=== PATIENT | male | born 1970 | race Two or more races ===

== ENCOUNTER 2018-02-27 04:47 | Emergency (ER) | payer OTHER ==
[~2018-02-27] VITALS: Ht 182.9 cm; Wt 80.3 kg
--- NOTE | 2018-02-27 04:47 | NUR ---
TO BED 10 BIB PARAMEDICS C/O R SIDED CP WHILE SITTING DOWN WATCHING TV NON RADIATING X30MIN/ SKIN WARM NONDIAPHORETIC. PLACE PT ON CARDIAC MONITORING, CONTINUOUS POX. ER MD AT BEDSIDE TO EVAL PT.
[2018-02-27] MEDS ORDERED: NITROGLYCERIN PACKET 1 GM PACKET ONE (05:23)
[2018-02-27] MEDS ORDERED: LORAZEPAM INJ 2 MG/ML VIAL ONE (05:24)
[2018-02-27] MEDS ORDERED: ASPIRIN 81 MG TAB.CHEW ONE (05:24)
[2018-02-27 05:27] LABS: HEMATOCRIT 39 % (39-51); HEMOGLOBIN 13.4 g/dL (13.5-17.5); LYMPHOCYTES # (AUTO) 1.3 /CMM (0.8-4.8); LYMPHOCYTES % (AUTO) 30.4 % (20.0-44.0); MEAN CORPUSCULAR HEMOGLOBIN 32 PG (26.0-33.0); MEAN CORPUSCULAR HGB CONC 35 g/dl (31.0-36.0); MEAN CORPUSCULAR VOLUME 91 fL (80-96); MONOCYTES # (AUTO) 0.5 /CMM (0.1-1.30); MONOCYTES % (AUTO) 11.1 % (2.0-12.0); NEUTROPHILS # (AUTO) 2.2 /CMM (1.8-8.9); NEUTROPHILS % (AUTO) 53.5 % (43.0-81.0); PLATELET COUNT (AUTO) 173 /CMM (150-450); RDW COEFFICIENT OF VARIATION 13.7 (11.5-15.0); RED BLOOD CELL COUNT(AUTO) 4.26 MIL/uL (4.5-6.0); WHITE BLOOD COUNT (AUTO) 4.2 K/uL (4.3-11.0)
[2018-02-27] MEDS ORDERED: NITROGLYCERIN PACKET 1 GM PACKET TD ONE (05:30)
[2018-02-27] MEDS ORDERED: ASPIRIN 81 MG TAB.CHEW PO ONE (05:30)
[2018-02-27] MEDS ORDERED: LORAZEPAM INJ 2 MG/ML VIAL IV ONE (05:30)
[2018-02-27] MEDS ORDERED: IV NS 0.9% 1,000 ML BAG IV ONE (05:30)
--- NOTE | 2018-02-27 05:32 | NUR ---
PT MEDICATED ORDERED.
[2018-02-27 05:44] LABS: CALCIUM, SERUM 8.5 mg/dL (8.5-10.1); CARBON DIOXIDE 30 mmol/L (21-32); CHLORIDE 102 mmol/L (98-107); GLUCOSE 146 mg/dL (74-106); POTASSIUM 3.5 mmol/L (3.5-5.1); SODIUM SERUM 137 mmol/L (136-145); UREA NITROGEN, BLOOD 18 mg/dL (7-18)
[2018-02-27 05:47] LABS: TROPONIN I < 0.017 ng/mL (0.00-0.056)
[2018-02-27 05:54] LABS: ALANINE AMINOTRANSFERASE 46 U/L (12-78); ALBUMIN 3.3 g/dL (3.4-5.0); ALKALINE PHOSPHATASE 81 U/L (46-116); B-TYPE NATRIURETIC PEPTIDE 28 PG/ML (0-125); BILIRUBIN,DIRECT 0.1 mg/dL (0.0-0.2); BILIRUBIN,TOTAL 0.5 mg/dL (0.2-1.0); TOTAL PROTEIN, SERUM 8.3 g/dL (6.4-8.2)
[2018-02-27] MEDS ORDERED: NITROGLYCERIN 0.4 MG/TAB BOTTLE ONE (05:54)
[2018-02-27] MEDS ORDERED: NITROGLYCERIN 0.4 MG/TAB BOTTLE SL ONE (06:00)
[2018-02-27 06:05] LABS: ASPARTATE AMINOTRANSFERASE 34 U/L (15-37)
--- NOTE | 2018-02-27 06:24 | NUR ---
nitro paste to chest wall removed and wiped off.
--- NOTE | 2018-02-27 06:25 | NUR ---
ns 1000ml's infused.
--- NOTE | 2018-02-27 06:26 | NUR ---
IV removed. Catheter intact and site benign. Pressure and 4x4 applied to site. No bleeding noted. Patient discharged to home in stable condition. Written and verbal after care instructions given. Patient verbalizes understanding of instruction. ambulatory with a steady gait noted. pt aaox4 no acute distress noted, resp even and unlabored. advice pt not to drive or operate any machinery due to pt was given ativan. pt verbalize understanding. pt friend at bedside to take pt home.
[2018-02-27 06:28] VITALS: BP 117/89
== END 2018-02-27 06:30 | disposition home or self-care (01) ==
LOC: ER 04:49
DX: R07.89 Other chest pain (principal); I10 Essential (primary) hypertension; R00.0 Tachycardia, unspecified; F15.10 Other stimulant abuse, uncomplicated; F41.9 Anxiety disorder, unspecified; Z88.2 Allergy status to sulfonamides; Z88.8 Allergy status to other drugs, medicaments and biological substances
CPT/HCPCS: 36415; 71045; 80048; 80076; 83880; 84484; 85025; 85378; 93005 ×2; 96374; 99285; A4606; J2060; J7030; Z7610

== ENCOUNTER 2018-03-22 13:08 | Emergency (ER) | payer OTHER ==
[~2018-03-22] VITALS: Ht 170.2 cm; Wt 74.8 kg
--- NOTE | 2018-03-22 14:17 | NUR ---
KRISTAL AGRICULTURAL EDUCATION TEACHER AT BEDSIDE FOR EVAL.
[2018-03-22] MEDS ORDERED: IV NS 0.9% 1,000 ML BAG IV ONE (14:30)
[2018-03-22] MEDS ORDERED: ACETAMINOPHEN ES 500 MG TABLET PO ONE (14:30)
[2018-03-22] MEDS ORDERED: MORPHINE SULFATE INJ 2 MG/ML DISP.SYRIN IV ONE (14:30)
[2018-03-22] MEDS ORDERED: ONDANSETRON HCL/PF 4 MG/2 ML VIAL IVP ONE (14:30)
--- NOTE | 2018-03-22 14:30 | NUR ---
IV LINE STARTED BLOOD DRAWN AND SENT TO LAB.
[2018-03-22 14:40] LABS: EOSINOPHILS % (AUTO) 2.6 % (0.0-6.0); LYMPHOCYTES # (AUTO) 1.2 /CMM (0.8-4.8)
[2018-03-22] MEDS ORDERED: ONDANSETRON HCL/PF 4 MG/2 ML VIAL ONE (14:41)
[2018-03-22] MEDS ORDERED: MORPHINE SULFATE INJ 4 MG/ML DISP.SYRIN ONE (14:41)
[2018-03-22] MEDS ORDERED: ACETAMINOPHEN ES 500 MG TABLET ONE (14:41)
[2018-03-22 14:42] LABS: BASOPHILS # (AUTO) 0.1 /CMM (0.0-0.2); BASOPHILS % (AUTO) 0.9 % (0.0-2.0); HEMATOCRIT 43 % (39-51); HEMOGLOBIN 14.4 g/dL (13.5-17.5); LYMPHOCYTES % (AUTO) 19.7 % (20.0-44.0); MEAN CORPUSCULAR HGB CONC 34 g/dl (31.0-36.0); MEAN CORPUSCULAR VOLUME 90 fL (80-96); MONOCYTES # (AUTO) 0.5 /CMM (0.1-1.30); MONOCYTES % (AUTO) 9.2 % (2.0-12.0); NEUTROPHILS % (AUTO) 67.6 % (43.0-81.0); PLATELET COUNT (AUTO) 158 /CMM (150-450); RDW COEFFICIENT OF VARIATION 12.7 (11.5-15.0); RED BLOOD CELL COUNT(AUTO) 4.73 MIL/uL (4.5-6.0)
[2018-03-22 14:51] LABS: INR 0.85 (0.85-1.15)
[2018-03-22 14:56] LABS: TROPONIN I < 0.017 ng/mL (0.00-0.056)
[2018-03-22 14:59] LABS: ALANINE AMINOTRANSFERASE 83 U/L (12-78); ALBUMIN 3.5 g/dL (3.4-5.0); ALKALINE PHOSPHATASE 109 U/L (46-116); ASPARTATE AMINOTRANSFERASE 53 U/L (15-37); BILIRUBIN,DIRECT 0.1 mg/dL (0.0-0.2); BILIRUBIN,TOTAL 0.5 mg/dL (0.2-1.0); CALCIUM, SERUM 9.2 mg/dL (8.5-10.1); CARBON DIOXIDE 28 mmol/L (21-32); CHLORIDE 104 mmol/L (98-107); CREATININE 1.2 mg/dL (0.6-1.3); GLUCOSE 116 mg/dL (74-106); POTASSIUM 5.3 mmol/L (3.5-5.1); SODIUM SERUM 137 mmol/L (136-145); TOTAL PROTEIN, SERUM 8.6 g/dL (6.4-8.2); UREA NITROGEN, BLOOD 16 mg/dL (7-18)
[2018-03-22] MEDS ORDERED: TDAP [DIPH/PERTUSSIS/TET] 0.5 ML VIAL IM ONE ×2 (15:30→15:54)
[2018-03-22] MEDS ORDERED: LIDOCAINE 1% INJ 50 ML MDV IJ ONE (15:30)
[2018-03-22 16:06] VITALS: BP 130/75
--- NOTE | 2018-03-22 16:06 | NUR ---
Patient discharged to home in stable condition. Written and verbal after care instructions given. Patient verbalizes understanding of instruction.IV removed. Catheter intact and site benign. Pressure and 4x4 applied to site. No bleeding noted.
== END 2018-03-22 16:07 | disposition home or self-care (01) ==
LOC: ER 13:11
DX: L03.319 Cellulitis of trunk, unspecified (principal); L02.219 Cutaneous abscess of trunk, unspecified; L73.8 Other specified follicular disorders; I10 Essential (primary) hypertension; F41.9 Anxiety disorder, unspecified; Z88.2 Allergy status to sulfonamides; Z88.8 Allergy status to other drugs, medicaments and biological substances
CPT/HCPCS: 10060; 36415; 71045; 80048; 80076; 83605; 84484; 85025; 85730; 87040 ×2; 87804 ×2; 90471; 90715; 93005; 96374; 96375; 99285; A4606; A6402; J2270; J2405; J7030; Z7610; 87400

== ENCOUNTER 2018-03-23 18:57 | Emergency (ER) | payer OTHER ==
[~2018-03-23] VITALS: Ht 185.4 cm; Wt 81.6 kg
--- NOTE | 2018-03-23 19:11 | NUR ---
PT BIB FRIEND FROM HOME PLACED IN WHEEL CHAIR TAKEN TO ROOM 7 EKG DONE MD LUO AWARE PT ALERT WITH ORIENTATION X 3 PT NOTED TO BE ANXIOUS DEEP BREATHING
[2018-03-23] MEDS ORDERED: IV NS 0.9% 1,000 ML BAG IV ONE (19:30)
[2018-03-23] MEDS ORDERED: MORPHINE SULFATE INJ 2 MG/ML DISP.SYRIN IV ONE (19:30)
[2018-03-23] MEDS ORDERED: ONDANSETRON HCL/PF 4 MG/2 ML VIAL IVP ONE (19:30)
[2018-03-23] MEDS ORDERED: LORAZEPAM INJ 2 MG/ML VIAL IV ONE (19:30)
[2018-03-23 19:31] LABS: BASOPHILS # (AUTO) 0.1 /CMM (0.0-0.2); EOSINOPHILS % (AUTO) 1.5 % (0.0-6.0)
[2018-03-23 19:35] LABS: BASOPHILS % (AUTO) 1.1 % (0.0-2.0); HEMATOCRIT 42 % (39-51); HEMOGLOBIN 14.3 g/dL (13.5-17.5); LYMPHOCYTES # (AUTO) 0.9 /CMM (0.8-4.8); LYMPHOCYTES % (AUTO) 18.8 % (20.0-44.0); MEAN CORPUSCULAR HGB CONC 34 g/dl (31.0-36.0); MEAN CORPUSCULAR VOLUME 90 fL (80-96); MONOCYTES # (AUTO) 0.6 /CMM (0.1-1.30); MONOCYTES % (AUTO) 11.2 % (2.0-12.0); NEUTROPHILS # (AUTO) 3.2 /CMM (1.8-8.9); NEUTROPHILS % (AUTO) 67.4 % (43.0-81.0); PLATELET COUNT (AUTO) 163 /CMM (150-450); RDW COEFFICIENT OF VARIATION 12.6 (11.5-15.0); RED BLOOD CELL COUNT(AUTO) 4.66 MIL/uL (4.5-6.0); WHITE BLOOD COUNT (AUTO) 4.9 K/uL (4.3-11.0)
[2018-03-23] MEDS ORDERED: LORAZEPAM INJ 2 MG/ML VIAL ONE (19:37)
[2018-03-23] MEDS ORDERED: ONDANSETRON HCL/PF 4 MG/2 ML VIAL ONE (19:37)
[2018-03-23] MEDS ORDERED: MORPHINE SULFATE INJ 4 MG/ML DISP.SYRIN ONE (19:37)
[2018-03-23 19:43] LABS: CALCIUM, SERUM 9.4 mg/dL (8.5-10.1); CARBON DIOXIDE 29 mmol/L (21-32); CHLORIDE 102 mmol/L (98-107); CREATININE 0.9 mg/dL (0.6-1.3); GLUCOSE 105 mg/dL (74-106); POTASSIUM 4.9 mmol/L (3.5-5.1); SODIUM SERUM 137 mmol/L (136-145); UREA NITROGEN, BLOOD 15 mg/dL (7-18)
[2018-03-23 19:45] LABS: INR 0.88 (0.85-1.15)
--- NOTE | 2018-03-23 19:45 | NUR ---
PATIENT MEDICATED ORDERED
[2018-03-23 19:49] LABS: ALANINE AMINOTRANSFERASE 120 U/L (12-78); ALBUMIN 3.5 g/dL (3.4-5.0); ALKALINE PHOSPHATASE 134 U/L (46-116); ASPARTATE AMINOTRANSFERASE 74 U/L (15-37); BILIRUBIN,DIRECT 0.1 mg/dL (0.0-0.2); BILIRUBIN,TOTAL 0.5 mg/dL (0.2-1.0); TOTAL PROTEIN, SERUM 9.1 g/dL (6.4-8.2)
[2018-03-23 19:51] LABS: TROPONIN I < 0.017 ng/mL (0.00-0.056)
--- NOTE | 2018-03-23 19:57 | NUR ---
PATIENT STATES HE HAS AN ALLERGY TO IODINE, UNSURE REGARDING TYPE OF REACTION. DR LUO NOTIFIED
--- NOTE | 2018-03-23 20:04 | NUR ---
Patient does not wish to proceed with medical care recommended by Dr. Childers. Patient given information related to possible complications, up to and including , which could occur as a result of leaving the hospital at this time. Patient verbalizes understanding of risks involved due to leaving against medical advice. Patient has signed AMA form, Pt signed AMA form with letter "x" witnessed by emt ghada and champ garduno.
--- NOTE | 2018-03-23 20:05 | NUR ---
IV removed. Catheter intact and site benign. Pressure and 4x4 applied to site. No bleeding noted. Patient discharged to home in stable condition. Written and verbal after care instructions given. Patient verbalizes understanding of instruction.
--- NOTE | 2018-03-23 20:06 | NUR ---
PATIENT INSTRUCTED NOT TO DRIVE OR OPERATE HEAVY MACHINERY. PATIENT VERBALIZES UNDERSTANDING Addendum: 03/23/18 at 2020 by MARK PATIENT NOTED WITH STEADY GAIT
[2018-03-23 20:22] VITALS: BP 140/84
== END 2018-03-23 20:06 | disposition left against medical advice (07) ==
LOC: ER 19:03
DX: R07.89 Other chest pain (principal); F41.1 Generalized anxiety disorder; I10 Essential (primary) hypertension; I25.2 Old myocardial infarction; R00.0 Tachycardia, unspecified; Z88.2 Allergy status to sulfonamides; Z88.8 Allergy status to other drugs, medicaments and biological substances
CPT/HCPCS: 36415; 71045; 80048; 80076; 84484; 85025; 85730; 93005; 96374; 96375; 99285; A4606; J2060; J2270; J2405; J7030; Z7610

== ENCOUNTER 2018-08-15 17:12 | Emergency (ER) | payer OTHER ==
[~2018-08-15] VITALS: Ht 185.4 cm; Wt 83.9 kg
--- NOTE | 2018-08-15 17:14 | NUR ---
BIB SELF W C/O SEVERE MIGRAINE HEADACHE ATTACK; RUN OUT OF IMITREX, + HIV - LAST CD 4 COUNT IS OKAY PER PATIENT REPORT, TO ER BED 6, HOOKED TO MONITOR, AWAITING MD JIMENEZ
--- NOTE | 2018-08-15 17:20 | NUR ---
DR MIRELES AT BEDSIDE
[2018-08-15] MEDS ORDERED: METOCLOPRAMIDE HCL 10 MG/2 ML VIAL IV ONE (17:30)
[2018-08-15] MEDS ORDERED: IV NS 0.9% 1,000 ML IV ONE (17:30)
[2018-08-15] MEDS ORDERED: HYDROMORPHONE 1 MG/1 ML DISP.SYRIN IV ONE (17:30)
[2018-08-15] MEDS ORDERED: METOCLOPRAMIDE HCL 10 MG/2 ML VIAL ONE (17:34)
[2018-08-15] MEDS ORDERED: HYDROMORPHONE 1 MG/1 ML DISP.SYRIN ONE (17:35)
--- NOTE | 2018-08-15 19:17 | NUR ---
IV removed. Catheter intact and site benign. Pressure and 4x4 applied to site. No bleeding noted.Patient discharged to home in stable condition. Written and verbal after care instructions given. Patient verbalizes understanding of instruction.
[2018-08-15 19:18] VITALS: BP 138/94
[2018-08-16] MEDS ORDERED: HYDROMORPHONE 1 MG/1 ML DISP.SYRIN ONE ×2 (01:45→06:32)
[2018-08-16] MEDS ORDERED: METOCLOPRAMIDE HCL 10 MG/10 ML UDC ONE (01:45)
[2018-08-16] MEDS ORDERED: ONDANSETRON HCL/PF 4 MG/2 ML VIAL ONE (06:33)
[2018-08-16] MEDS ORDERED: BUPR300T54 PO (07:55)
[2018-08-16] MEDS ORDERED: ATOR10TA PO (07:55)
[2018-08-16] MEDS ORDERED: CARV6.252 PO (07:55)
[2018-08-16] MEDS ORDERED: EMTR1TAB17 PO (07:55)
[2018-08-16] MEDS ORDERED: ALPR1TAB7 PO (07:55)
[2018-08-16] MEDS ORDERED: ASPI-1152 PO (07:55)
[2018-08-16] MEDS ORDERED: DOLU50TA PO (07:55)
[2018-08-16] MEDS ORDERED: OMEP40CA37 PO (07:55)
== END 2018-08-15 19:19 | disposition home or self-care (01) ==
LOC: ER 17:18
DX: R51 Headache (principal); L02.415 Cutaneous abscess of right lower limb; I10 Essential (primary) hypertension; I25.2 Old myocardial infarction; F41.9 Anxiety disorder, unspecified; Z88.2 Allergy status to sulfonamides; Z88.8 Allergy status to other drugs, medicaments and biological substances
CPT/HCPCS: 96361; 96374; 96375; 99283; A4606; J1170; J2765; J7030; J2405; J8597

== ENCOUNTER 2018-08-16 00:56 | Inpatient (IN) | payer MEDICAID, OTHER ==
[~2018-08-16] VITALS: Ht 182.9 cm; Wt 87.5 kg
--- NOTE | 2018-08-16 01:20 | NUR ---
AMARI C/O MIGRAINE, RECENTLY DC FROM [facility] ER, PAIN GOT WORSE, +NV, +DIZZINESS AND BLURRY VISION, SEEN AND TRIAGED PLACED ON ER BED 7, AWAITING TO BE EVAL BY DR PAREKH.
--- NOTE | 2018-08-16 01:27 | NUR ---
TAKEN FOR CT HEAD.
--- NOTE | 2018-08-16 01:27 | NUR ---
SEEN BY DR IGLESIA JIMENEZ DONE, ORDERS ENTERED.
[2018-08-16] MEDS ORDERED: HYDROMORPHONE INJ 2 MG/ML DISP.SYRIN IM ONE (01:30)
[2018-08-16] MEDS ORDERED: METOCLOPRAMIDE HCL 10 MG/2 ML VIAL IV ONE (01:30)
[2018-08-16] MEDS ORDERED: IV NS 0.9% 1,000 ML BAG IV ONE ×2 (01:30→05:30)
[2018-08-16 01:51] LABS: BASOPHILS % (AUTO) 0.5 % (0.0-2.0); HEMATOCRIT 43 % (39-51); HEMOGLOBIN 14.6 g/dL (13.5-17.5); LYMPHOCYTES # (AUTO) 1.5 /CMM (0.8-4.8); LYMPHOCYTES % (AUTO) 34.1 % (20.0-44.0); MEAN CORPUSCULAR HGB CONC 35 g/dl (31.0-36.0); MEAN CORPUSCULAR VOLUME 90 fL (80-96); MONOCYTES # (AUTO) 0.4 /CMM (0.1-1.30); MONOCYTES % (AUTO) 9.5 % (2.0-12.0); NEUTROPHILS # (AUTO) 2.3 /CMM (1.8-8.9); NEUTROPHILS % (AUTO) 51.9 % (43.0-81.0); PLATELET COUNT (AUTO) 164 /CMM (150-450); RED BLOOD CELL COUNT(AUTO) 4.73 MIL/uL (4.5-6.0); WHITE BLOOD COUNT (AUTO) 4.3 K/uL (4.3-11.0)
[2018-08-16 02:01] LABS: CALCIUM, SERUM 8.9 mg/dL (8.5-10.1); POTASSIUM 4.1 mmol/L (3.5-5.1)
[2018-08-16 02:06] LABS: ALBUMIN 3.4 g/dL (3.4-5.0); BILIRUBIN,DIRECT 0.1 mg/dL (0.0-0.2); BILIRUBIN,TOTAL 0.4 mg/dL (0.2-1.0); TOTAL PROTEIN, SERUM 8.9 g/dL (6.4-8.2)
--- NOTE | 2018-08-16 03:37 | NUR ---
LP DONE WITH CSF CULTURE COLLECTED AND TAKEN LAB. 4 BOTTLES WELL LABELED. COLLECTED BY DR PAREKH.
[2018-08-16] MEDS ORDERED: LIDOCAINE 1% INJ 50 ML MDV IJ ONE (04:04)
--- NOTE | 2018-08-16 05:00 | NUR ---
PT STILL C/O SEVERE H/A, MD PAREKH MADE AWRARE, MORE DILAUDID 0.5 ML AND ZOFRAN ORDERED AND GIVEN.
[2018-08-16 05:17] LABS: CSF PROTEIN 48.4 mg/dL (15-45)
[2018-08-16] MEDS ORDERED: HYDROMORPHONE 1 MG/1 ML DISP.SYRIN IV ONE ×2 (05:30→06:30)
[2018-08-16] MEDS ORDERED: HYDROMORPHONE 1 MG/1 ML DISP.SYRIN ONE (05:32)
--- NOTE | 2018-08-16 06:24 | NUR ---
PAGED [facility].
[2018-08-16] MEDS ORDERED: ONDANSETRON HCL/PF - ER 4 MG/2 ML VIAL IV ONE (06:30)
--- NOTE | 2018-08-16 06:40 | NUR ---
PERSON FOR CONTACT: CHIP
--- NOTE | 2018-08-16 06:49 | NUR ---
BED 328-1
[2018-08-16] MEDS ORDERED: ONDANSETRON HCL/PF 4 MG/2 ML VIAL IVP PRN (07:00)
[2018-08-16] MEDS ORDERED: MAGNESIUM HYDROXIDE 30 ML UDC PO PRN (07:00)
[2018-08-16] MEDS ORDERED: ASPIRIN/ACETAMINOPHEN/CAFFEINE 1 EACH TABLET PO PRN (07:00)
[2018-08-16] MEDS ORDERED: ACETAMINOPHEN 325 MG TABLET PO PRN (07:00)
[2018-08-16] MEDS ORDERED: Z GUARD REMEDY 2 OZ OINT TP PRN (07:00)
[2018-08-16] MEDS ORDERED: ZOLPIDEM TARTRATE 5 MG TABLET PO PRN (07:00)
[2018-08-16] MEDS ORDERED: MAG HYDROX/AL HYDROX/SIMETH 30 ML UDC PO PRN (07:00)
--- NOTE | 2018-08-16 07:34 | NUR ---
REPORT FOR MADDI GIVEN TO ED RN.
[2018-08-16] MEDS ORDERED: BUPR300T54 PO (07:55)
[2018-08-16] MEDS ORDERED: ASPI-1152 PO (07:55)
[2018-08-16] MEDS ORDERED: EMTR1TAB17 PO (07:55)
[2018-08-16] MEDS ORDERED: CARV6.252 PO (07:55)
[2018-08-16] MEDS ORDERED: DOLU50TA PO (07:55)
[2018-08-16] MEDS ORDERED: OMEP40CA37 PO (07:55)
[2018-08-16] MEDS ORDERED: ALPR1TAB7 PO (07:55)
[2018-08-16] MEDS ORDERED: ATOR10TA PO (07:55)
[2018-08-16 08:00] VITALS: BP 164/108
--- NOTE | 2018-08-16 08:43 | NUR ---
REPORT GIVEN TO ALLEN TOMAS FOR MADDI MS 328-1
--- NOTE | 2018-08-16 09:00 | NUR ---
patient admitted to room 311-1 , MS. Patient arrived via wheelchair, A/Ox 4 , BP elevated 164/108, afebrile, O2 saturation 97% on room air. No distress noted, pt complains of headache. RAC #20 g intact and patent.,skin intact. Dr. Marrufo is here , will see pt soon.
[2018-08-16] MEDS ORDERED: ATORVASTATIN 10 MG TABLET PO SCH (11:30)
[2018-08-16] MEDS ORDERED: CARVEDILOL 6.25 MG TABLET PO SCH (11:30)
[2018-08-16] MEDS ORDERED: Medication Not On Formulary EA (Dolutegravir Sodium (Tivicay) 50 MG) PO SCH (11:30)
[2018-08-16] MEDS ORDERED: Medication Not On Formulary EA (Emtricitabine/Tenofov Alafenam (Descovy 200-25 mg Tablet PO SCH (11:30)
[2018-08-16] MEDS ORDERED: SUMATRIPTAN SUCCINATE 25 MG TABLET PO ONE (11:30)
--- NOTE | 2018-08-16 12:00 | NUR ---
Imitrex administered once as directed.
[2018-08-16 12:11] VITALS: BP 164/108
--- NOTE | 2018-08-16 16:10 | NUR ---
patient stated he cannot stay anymore , his filing better and needs to go home. D/C instructions offered offered but patient refused and wants to leave against medical advise. Patient alert and oriented x4, refused to take VS . IV line removed , ID line removed as well.All belongings with patient. AMA form signed by patient.
[2018-08-16] MEDS ORDERED: KETOROLAC TROMETHAMINE INJ 30 MG/ML VIAL IV ONE (16:30)
[2018-08-16] MEDS ORDERED: NAPROXEN 500 MG TABLET PO PRN (16:30)
[2018-08-16] MEDS ORDERED: NAPROXEN 250 MG TABLET PO PRN (17:00)
[2018-08-16] MEDS ORDERED: IV NS 0.9% 1,000 ML IV PRN (17:30)
[2018-08-16] MEDS ORDERED: TOPIRAMATE 25 MG TABLET PO SCH (21:00)
[2018-08-16] MEDS ORDERED: ALPRAZOLAM 1 MG TABLET PO PRN (22:00)
[2018-08-17 07:06] LABS: *BASOS 0 % (Not Estab.); *EOS 3 % (Not Estab.); *EOS, ABSOLUTE 0.1 x10E3/uL (0.0-0.4); *HCT 44.7 % (37.5-51.0); *HGB 15.2 g/dL (13.0-17.7); *IMMATURE GRANULOCYTES 0 % (Not Estab.); *LYMPHOCYTES 46 % (Not Estab.); *LYMPHS, ABSOLUTE 2.1 x10E3/uL (0.7-3.1); *MCH 30.7 pg (26.6-33.0); *MCV 90 fL (79-97); *MONOCYTES 10 % (Not Estab.); *MONOS, ABSOLUTE 0.4 x10E3/uL (0.1-0.9); *NEUTROPHILS 41 % (Not Estab.); *NEUTROPHILS, ABSOLUTE 1.9 x10E3/uL (1.4-7.0); *PLT 195 x10E3/uL (150-379); *RBC 4.95 x10E6/uL (4.14-5.80); *RDW 13.6 % (12.3-15.4)
[2018-08-17] MEDS ORDERED: PANTOPRAZOLE 40 MG TABLET.DR PO SCH (07:30)
[2018-08-17] MEDS ORDERED: BUPROPION XL 150 MG TAB.ER.24 PO SCH (09:00)
[2018-08-17] MEDS ORDERED: ASPIRIN EC 81 MG TABLET.DR PO SCH (09:00)
[2018-08-17 10:16] LABS: *% CD 4 POS. LYMPH 13.7 % (30.8-58.5); *% CD 8 POS. LYMPH 59.4 % (12.0-35.5); *ABSOLUTE CD 4 HELPER 288 /uL (359-1519); *ABSOLUTE CD 8 SUPPRESSOR 1247 /uL (109-897); *CD4/CD8 RATIO 0.23 (0.92-3.72)
[2018-08-19 12:17] LABS: VDRL, CSF Non Reactive (Non Rea:<1:1)
[2018-08-19 22:11] LABS: *HIV-1 RNA BY PCR 20 copies/mL (.); *HIV-1 log10 RNA 1.301 (.)
[2018-08-20 08:13] LABS: *CRYPTOCOCCUS AG, CSF Negative (Negative)
== END 2018-08-16 16:10 | disposition left against medical advice (07) | DRG 54 ==
LOC: ER 00:58 → MED 07:09
PROVIDERS: ADMIT Internal Medicine; ATTEND Internal Medicine
DX: G43.919 Migraine, unspecified, intractable, without status migrainosus (principal); K76.0 Fatty (change of) liver, not elsewhere classified; F41.9 Anxiety disorder, unspecified; G97.1 Other reaction to spinal and lumbar puncture; I10 Essential (primary) hypertension; K21.9 Gastro-esophageal reflux disease without esophagitis; Z88.2 Allergy status to sulfonamides; R74.0 Nonspecific elevation of levels of transaminase and lactic acid dehydrogenase [LDH]; Y84.4 Aspiration of fluid as the cause of abnormal reaction of the patient, or of later complication, without mention of misadventure at the time of the procedure; Y92.89 Other specified places as the place of occurrence of the external cause
CPT/HCPCS: 36415; 70450-TC; 80048-TC; 80076-TC; 82945-TC; 84155-TC; 85025-TC; 85730-TC; 86360; 86592; 87070-TC; 87081-TC; 87102-TC; 87536; 87899; 89051-TC; A6403; G0378; J1170; J2405; J3490; J7030

== ENCOUNTER 2019-03-08 03:50 | Emergency (ER) | payer MEDICAID ==
[~2019-03-08] VITALS: Ht 185.4 cm; Wt 88.5 kg
[~2019-03-08 03:50] MED LIST: ALPR1TAB7 PO; ASPI-1152 PO; ATOR10TA PO; BUPR300T54 PO; CARV6.252 PO; DOLU50TA PO; EMTR1TAB17 PO; OMEP40CA37 PO
[2019-03-08 03:55] VITALS: BP 136/92
--- NOTE | 2019-03-08 04:35 | NUR ---
BIB FRIEND C/O L GROIN PAIN S/P MOVING FURNITURE, IN BED 1 AWAITING MED EVAL
--- NOTE | 2019-03-08 05:08 | NUR ---
Patient eloped from facility. ER MD notified.
== END 2019-03-08 05:12 | disposition left against medical advice (07) ==
LOC: ER 03:54
DX: R10.32 Left lower quadrant pain (principal); G43.909 Migraine, unspecified, not intractable, without status migrainosus; Z88.2 Allergy status to sulfonamides; Z91.048 Other nonmedicinal substance allergy status; Z79.82 Long term (current) use of aspirin; Z79.899 Other long term (current) drug therapy

== ENCOUNTER 2019-03-12 18:12 | Inpatient (IN) | payer MEDICAID ==
[~2019-03-12] VITALS: Ht 185.4 cm; Wt 83.9 kg
[~2019-03-12 18:12] MED LIST changes: +OMEP40CA13 PO; -OMEP40CA37 PO
[2019-03-12] MEDS ORDERED: VANCOMYCIN 1 GM in IV D5W 250 ML IV ONE (19:00)
[2019-03-12 19:22] LABS: BASOPHILS % (AUTO) 0.5 % (0.0-2.0); EOSINOPHILS % (AUTO) 1.3 % (0.0-6.0); HEMATOCRIT 38 % (39-51); LYMPHOCYTES # (AUTO) 1.3 /CMM (0.8-4.8); LYMPHOCYTES % (AUTO) 27.5 % (20.0-44.0); MEAN CORPUSCULAR HGB CONC 34 g/dl (31.0-36.0); MEAN CORPUSCULAR VOLUME 90 fL (80-96); MONOCYTES # (AUTO) 0.5 /CMM (0.1-1.30); MONOCYTES % (AUTO) 11.2 % (2.0-12.0); NEUTROPHILS # (AUTO) 2.8 /CMM (1.8-8.9); NEUTROPHILS % (AUTO) 59.5 % (43.0-81.0); PLATELET COUNT (AUTO) 151 /CMM (150-450); WHITE BLOOD COUNT (AUTO) 4.7 K/uL (4.3-11.0)
[2019-03-12] MEDS ORDERED: VANCOMYCIN 1 GM VIAL ONE (19:37)
--- NOTE | 2019-03-12 19:52 | NUR ---
US AT BEDSIDE PERFORMING TEST. PATIENT SEEN LLE SEEN TO BE SWOLLEN AND RED. REPORTS IT HAS BEEN GETTING WORSE OVER LAST 3 DAYS. NEW VS TAKEN.
[2019-03-12] MEDS ORDERED: ONDANSETRON HCL/PF 4 MG/2 ML VIAL ONE (19:53)
[2019-03-12] MEDS ORDERED: ONDANSETRON HCL/PF - ER 4 MG/2 ML VIAL IV ONE (20:00)
[2019-03-12 20:10] LABS: CALCIUM, SERUM 9.4 mg/dL (8.5-10.1); CREATININE 0.9 mg/dL (0.6-1.3); POTASSIUM 4.4 mmol/L (3.5-5.1)
[2019-03-12 20:15] LABS: ALBUMIN 3.1 g/dL (3.4-5.0); BILIRUBIN,DIRECT 0.2 mg/dL (0.0-0.2); BILIRUBIN,TOTAL 0.4 mg/dL (0.2-1.0); TOTAL PROTEIN, SERUM 8.8 g/dL (6.4-8.2)
--- NOTE | 2019-03-12 21:18 | NUR ---
CALLED FOR [facility] BED
--- NOTE | 2019-03-12 21:58 | NUR ---
PT ASSIGNED TO 304-1
[2019-03-12] MEDS ORDERED: MAG HYDROX/AL HYDROX/SIMETH 30 ML UDC PO PRN (22:00)
[2019-03-12] MEDS ORDERED: ONDANSETRON HCL/PF 4 MG/2 ML VIAL IVP PRN (22:00)
[2019-03-12] MEDS ORDERED: HYDROCODONE/APAP 5/325MG 1 EACH TABLET PO PRN ×2 (22:00→22:30)
[2019-03-12] MEDS ORDERED: ACETAMINOPHEN 325 MG TABLET PO PRN (22:00)
[2019-03-12] MEDS ORDERED: MAGNESIUM HYDROXIDE 30 ML UDC PO PRN (22:00)
[2019-03-12] MEDS ORDERED: ZOLPIDEM TARTRATE 5 MG TABLET PO PRN (22:00)
[2019-03-12] MEDS ORDERED: Z GUARD REMEDY 2 OZ OINT TP PRN (22:00)
--- NOTE | 2019-03-12 22:22 | NUR ---
REPORT GIVEN TO MARJORIE VILLA BED AVAILABLE AT 304 BED 1 PATIENT TO BE ADMITTED UNDER DERDARIAN FOR CELLULITIS. TO BE TRASPORTED SOON. Addendum: 03/12/19 at 2224 by [email or web address] NOTE INPUT ACCIDENTALLY UNDER HARRISON. NOTE WRITTEN BY MAGDALENO BROOKS RN.
--- NOTE | 2019-03-12 23:09 | NUR ---
MS/RN NOTES RECEIVED PT. FROM ER VIA WHEELCHAIR. PT. IS AWAKE, ALERT AND ORIENTED X4. BREATHING EVEN AND UNLABORED ON ROOM AIR. ORIENTED PT. TO ROOM. NO SOB OR RESPIRATORY DISTRESS NOTED AT THIS TIME. PT. COMPLAINING OF PAIN IN HIS LEFT LOWER LEG. ELEVATED PT. LEFT LOWER LEG ON PILLOWS. WILL ADMINISTER TO PT. PAIN MEDICATION ORDERED. PT. WITH FRIEND PRESENT AT BEDSIDE. BED LOCKED AND IN LOWEST POSITION, SIDE RAILS UP X2, CALL LIGHT WITHIN REACH, WILL CONTINUE TO MONITOR.
[2019-03-12 23:27] VITALS: BP 141/102
[2019-03-12] MEDS ORDERED: CEFTRIAXONE 1 G VIAL ONE (23:57)
[2019-03-13] MEDS: CEFTRIAXONE 1 G in IV D5W 50 ML IV SCH ×2 (00:08→21:45)
[2019-03-13] MEDS: ALPRAZOLAM 1 MG TABLET PO PRN (01:15)
--- NOTE | 2019-03-13 01:31 | NUR ---
MS/RN NOTES CALLED AND NOTIFIED [employer] SUPERVISOR DR. CAI PT. RECEIVED PRN PAIN MEDICATION NORCO AND STATED ITS INEFFECTIVE AND HIS PAIN IS VERY SEVERE. PT. REQUESTING STRONGER PAIN MEDICATION. PER DR. CAI NEW ORDER: MORPHINE 2MG IV EVERY 3 HOURS PRN SEVERE PAIN AND DISCONTINUE PT. PRN NORCO MEDICATION. WILL CARRY OUT ORDERS. WILL CONTINUE TO MONITOR.
[2019-03-13] MEDS: MORPHINE SULFATE INJ 2 MG/ML DISP.SYRIN IV PRN ×5 (01:38→21:46)
--- NOTE | 2019-03-13 06:58 | NUR ---
MS/RN NOTES PT. IS LYING IN BED RESTING. BREATHING EVEN AND UNLABORED ON ROOM AIR. ORIENTED PT. TO ROOM. NO SOB, RESPIRATORY DISTRESS OR COMPLAINTS OF PAIN NOTED AT THIS TIME. PT. LEFT LOWER LEG ELEVATED ON PILLOWS. ALL PT. NEEDS MET. BED LOCKED AND IN LOWEST POSITION, SIDE RAILS UP X2, CALL LIGHT WITHIN REACH, WILL ENDORSE TO DAYSHIFT NURSE FOR CONTINUITY OF CARE.
[2019-03-13] MEDS ORDERED: FEE PK DOSING 1 MIN EA MC ONE (07:09)
[2019-03-13 07:40] LABS: BASOPHILS % (AUTO) 0.4 % (0.0-2.0); EOSINOPHILS % (AUTO) 1.7 % (0.0-6.0); HEMATOCRIT 36 % (39-51); HEMOGLOBIN 12.3 g/dL (13.5-17.5); LYMPHOCYTES # (AUTO) 1.3 /CMM (0.8-4.8); LYMPHOCYTES % (AUTO) 35.5 % (20.0-44.0); MEAN CORPUSCULAR HGB CONC 35 g/dl (31.0-36.0); MEAN CORPUSCULAR VOLUME 89 fL (80-96); MONOCYTES # (AUTO) 0.4 /CMM (0.1-1.30); MONOCYTES % (AUTO) 11.4 % (2.0-12.0); NEUTROPHILS # (AUTO) 1.9 /CMM (1.8-8.9); PLATELET COUNT (AUTO) 148 /CMM (150-450); RED BLOOD CELL COUNT(AUTO) 4.02 MIL/uL (4.5-6.0); WHITE BLOOD COUNT (AUTO) 3.7 K/uL (4.3-11.0)
[2019-03-13] MEDS: PANTOPRAZOLE 40 MG TABLET.DR PO SCH (07:55)
[2019-03-13 08:00] VITALS: BP_SYST 136; BP_SYST 146; BP_DIAS 74; BP_DIAS 83
[2019-03-13 08:15] LABS: ALBUMIN 2.6 g/dL (3.4-5.0); BILIRUBIN,TOTAL 0.5 mg/dL (0.2-1.0); CALCIUM, SERUM 8.7 mg/dL (8.5-10.1); CREATININE 0.9 mg/dL (0.6-1.3); MAGNESIUM 1.8 mg/dL (1.8-2.4); PHOSPHORUS 3.3 mg/dL (2.5-4.9); POTASSIUM 4.2 mmol/L (3.5-5.1); TOTAL PROTEIN, SERUM 7.8 g/dL (6.4-8.2)
[2019-03-13] MEDS: buPROPion SR 150 MG TABLET.ER PO SCH (08:54)
[2019-03-13] MEDS: VANCOMYCIN 1 GM in IV D5W 250 ML IV SCH ×2 (08:54→16:34)
[2019-03-13] MEDS: ASPIRIN EC 81 MG TABLET.DR PO SCH (08:54)
[2019-03-13] MEDS: CARVEDILOL 6.25 MG TABLET PO SCH ×2 (08:55→16:33)
[2019-03-13] MEDS: ATORVASTATIN 10 MG TABLET PO SCH (08:55)
[2019-03-13] MEDS ORDERED: Emtricitabine/Tenofov Alafenam (Descovy 200-25 mg Tablet PO SCH (09:00)
[2019-03-13] MEDS ORDERED: BICT1TAB PO (13:06)
[2019-03-13] MEDS ORDERED: HYDROCORTISONE OINT 1% 28.35 GM TUBE TP SCH (14:30)
[2019-03-13 16:00] VITALS: BP 118/77
--- NOTE | 2019-03-13 16:00 | NUR ---
RECEIVED PATIENT'S HOME MEDICATION AND SENT IT TO PHARMACY
[2019-03-13] MEDS: HYDROCORTISONE OINT 1% 28.35 GM TUBE TP SCH (18:41)
--- NOTE | 2019-03-13 19:07 | NUR ---
PATIENT RESTING IN BED. A/0X4. BREATHING UNLABORED AND EVEN ON ROOM AIR. NO DISTRESS NOTED. I V ASSESS INTACT AND PATENT. ALL NEEDS ATTENDED. PATIENT AMBULATORY. SAFETY PRECAUTIONS IN PLACE., CALL LIGHT IN REACH. WILL ENDORSE TO NEXT SHIFT FOR MADDI.
[2019-03-13 20:00] VITALS: BP 117/74
[2019-03-14] MEDS: VANCOMYCIN 1 GM in IV D5W 250 ML IV SCH ×2 (00:06→08:45)
[2019-03-14 07:08] LABS: BASOPHILS % (AUTO) 0.4 % (0.0-2.0); EOSINOPHILS % (AUTO) 1.9 % (0.0-6.0); HEMATOCRIT 39 % (39-51); HEMOGLOBIN 13.7 g/dL (13.5-17.5); LYMPHOCYTES # (AUTO) 1.8 /CMM (0.8-4.8); LYMPHOCYTES % (AUTO) 28.7 % (20.0-44.0); MEAN CORPUSCULAR HGB CONC 35 g/dl (31.0-36.0); MEAN CORPUSCULAR VOLUME 90 fL (80-96); MONOCYTES # (AUTO) 0.7 /CMM (0.1-1.30); MONOCYTES % (AUTO) 12.1 % (2.0-12.0); NEUTROPHILS # (AUTO) 3.5 /CMM (1.8-8.9); NEUTROPHILS % (AUTO) 56.9 % (43.0-81.0); PLATELET COUNT (AUTO) 184 /CMM (150-450); RED BLOOD CELL COUNT(AUTO) 4.36 MIL/uL (4.5-6.0); WHITE BLOOD COUNT (AUTO) 6.2 K/uL (4.3-11.0)
[2019-03-14 08:00] VITALS: BP 131/87
--- NOTE | 2019-03-14 08:30 | NUR ---
patient noticed with elevated liver enzymes. Will inform
[2019-03-14 08:33] LABS: CALCIUM, SERUM 9.2 mg/dL (8.5-10.1); CREATININE 0.9 mg/dL (0.6-1.3); MAGNESIUM 2.1 mg/dL (1.8-2.4); POTASSIUM 4.9 mmol/L (3.5-5.1)
[2019-03-14] MEDS: CARVEDILOL 6.25 MG TABLET PO SCH ×2 (08:46→17:26)
[2019-03-14] MEDS: ATORVASTATIN 10 MG TABLET PO SCH (08:46)
[2019-03-14] MEDS: ASPIRIN EC 81 MG TABLET.DR PO SCH (08:46)
[2019-03-14] MEDS: PANTOPRAZOLE 40 MG TABLET.DR PO SCH (08:48)
[2019-03-14] MEDS: BIKTARVY PO SCH (08:48)
[2019-03-14] MEDS: buPROPion SR 150 MG TABLET.ER PO SCH (08:48)
[2019-03-14] MEDS: HYDROCORTISONE OINT 1% 28.35 GM TUBE TP SCH ×2 (08:50→17:26)
[2019-03-14 09:25] LABS: *BASOS 0 % (Not Estab.); *COMMENTS Note: (.); *EOS 1 % (Not Estab.); *EOS, ABSOLUTE 0.1 x10E3/uL (0.0-0.4); *HCT 37.1 % (37.5-51.0); *HGB 11.9 g/dL (13.0-17.7); *IMMATURE GRANULOCYTES 0 % (Not Estab.); *LYMPHOCYTES 34 % (Not Estab.); *LYMPHS, ABSOLUTE 1.7 x10E3/uL (0.7-3.1); *MCH 29.4 pg (26.6-33.0); *MCHC 32.1 g/dL (31.5-35.7); *MCV 92 fL (79-97); *MONOCYTES 11 % (Not Estab.); *MONOS, ABSOLUTE 0.6 x10E3/uL (0.1-0.9); *NEUTROPHILS 54 % (Not Estab.); *NEUTROPHILS, ABSOLUTE 2.7 x10E3/uL (1.4-7.0); *PLT 162 x10E3/uL (150-450); *RBC 4.05 x10E6/uL (4.14-5.80); *RDW 14.1 % (12.3-15.4)
[2019-03-14 16:00] VITALS: BP 141/91
[2019-03-14] MEDS: LACTOBACILLUS RHAMNOSUS GG 1 EACH CAP.SPRINK PO SCH (17:25)
--- NOTE | 2019-03-14 18:30 | NUR ---
PATIENT RESTING IN BED. A/0X4. BREATHING UNLABORED AND EVEN ON ROOM AIR. NO DISTRESS NOTED. IV ASSESS REMAINS INTACT AND PATENT. ALL NEEDS ATTENDED. SAFETY PRECAUTIONS IN PLACE., CALL LIGHT IN REACH. WILL ENDORSE TO NEXT SHIFT FOR MADDI.
[2019-03-14 20:00] VITALS: BP 128/90
--- NOTE | 2019-03-14 20:00 | NUR ---
PATIENT IS ALERT AND ORIENTED, LEFT LOWER LEG CELLULITIS, CALM, ROOM AIR, DENIES PAIN AT THIS TIME, LEFT LOWER LEG SKIN INTACT, WITH REDNESS, SCATTERED SCABS, DENIES NUMBNESS, NO TINGLING, PEDAL PULSES PALPABLE, AMBULATORY, INDEPENDENT WITH ADLS, HIV +, PERIPHERAL IV TO RAC INFILTRATED, WILL REINSERT, NEEDS ATTENDED, CALL LIGHT WITHIN REACH.
[2019-03-14] MEDS ORDERED: CEFTRIAXONE 1 G VIAL ONE (21:16)
[2019-03-14] MEDS: CEFTRIAXONE 1 G in IV D5W 50 ML IV SCH (21:27)
[2019-03-15] MEDS: ALPRAZOLAM 1 MG TABLET PO PRN (03:58)
--- NOTE | 2019-03-15 06:18 | NUR ---
RN NOTES PATIENT IS ALERT AND ORIENTED X4, CALM, NO SOB, DENIES PAIN AT THIS TIME, LEFT LOWER LEG WITH CELLULITIS, HAS REDNESS, SKIN INTACT WITH SCATTERED SCABS, DENIES NUMBNESS AND TINGLING, NEGATIVE FOR DVT PER ULTZ, COMPLAINING OF TINNITUS, VS STABLE, VANCOMYCIN TROUGH LOW, LABS WNL, AMBULATORY, INDEPENDENT WITH SELF CARE, VANCOMYCIN DC'D, CONTINUE ROCEPHIN IV, REPEAT LFT, PT EVAL, FOLLOW UP CD4.
[2019-03-15 06:49] LABS: BASOPHILS % (AUTO) 0.6 % (0.0-2.0); EOSINOPHILS % (AUTO) 1.8 % (0.0-6.0); HEMATOCRIT 39 % (39-51); HEMOGLOBIN 13.3 g/dL (13.5-17.5); LYMPHOCYTES # (AUTO) 1.7 /CMM (0.8-4.8); LYMPHOCYTES % (AUTO) 30.5 % (20.0-44.0); MEAN CORPUSCULAR HGB CONC 34 g/dl (31.0-36.0); MEAN CORPUSCULAR VOLUME 89 fL (80-96); MONOCYTES # (AUTO) 0.7 /CMM (0.1-1.30); MONOCYTES % (AUTO) 11.8 % (2.0-12.0); NEUTROPHILS # (AUTO) 3.1 /CMM (1.8-8.9); NEUTROPHILS % (AUTO) 55.3 % (43.0-81.0); PLATELET COUNT (AUTO) 198 /CMM (150-450); RED BLOOD CELL COUNT(AUTO) 4.33 MIL/uL (4.5-6.0); WHITE BLOOD COUNT (AUTO) 5.6 K/uL (4.3-11.0)
[2019-03-15 07:15] LABS: BILIRUBIN,DIRECT 0.2 mg/dL (0.0-0.2); BILIRUBIN,TOTAL 0.5 mg/dL (0.2-1.0); TOTAL PROTEIN, SERUM 8.8 g/dL (6.4-8.2)
[2019-03-15 07:17] LABS: CREATININE 1.1 mg/dL (0.6-1.3); MAGNESIUM 2.1 mg/dL (1.8-2.4); POTASSIUM 4.1 mmol/L (3.5-5.1)
[2019-03-15 08:00] VITALS: BP 121/91
--- NOTE | 2019-03-15 08:00 | NUR ---
MS RN OPENING NOTES Received Patient awake and colouring pictures while sitting on chair. A/O x 4. VS stable with no acute distress. Breathing even and unlabored on room air with no respiratory distress. Denies pain at this time. 22g PIV on RAC clean, dry, intact and flushing well. Safety precautions in place. All needs rendered at this time. Call light within reach. Will continue to monitor.
[2019-03-15] MEDS ORDERED: CEPH-570 PO (08:38)
[2019-03-15] MEDS: HYDROCORTISONE OINT 1% 28.35 GM TUBE TP SCH (09:00)
[2019-03-15] MEDS: BIKTARVY PO SCH (09:00)
[2019-03-15] MEDS: PANTOPRAZOLE 40 MG TABLET.DR PO SCH (09:59)
[2019-03-15] MEDS: ASPIRIN EC 81 MG TABLET.DR PO SCH (09:59)
[2019-03-15 10:00] VITALS: BP 120/91
[2019-03-15] MEDS: LACTOBACILLUS RHAMNOSUS GG 1 EACH CAP.SPRINK PO SCH (10:00)
[2019-03-15] MEDS: CARVEDILOL 6.25 MG TABLET PO SCH (10:00)
[2019-03-15] MEDS: ATORVASTATIN 10 MG TABLET PO SCH (10:00)
[2019-03-15] MEDS: buPROPion SR 150 MG TABLET.ER PO SCH (10:00)
[2019-03-15 10:07] LABS: *% CD 4 POS. LYMPH 22.7 % (30.8-58.5); *ABSOLUTE CD 4 HELPER 386 /uL (359-1519); *ABSOLUTE CD 8 SUPPRESSOR 935 /uL (109-897); *CD4/CD8 RATIO 0.41 (0.92-3.72)
--- NOTE | 2019-03-15 14:23 | NUR ---
MS GAME FARM SUPERVISOR NOTES Patient discharged for home at this time. Patient in stable condition. VS stable with no acute distress. Breathing even and unlabored on room air with no respiratory distress. Denies pain. No signs and symptoms of pain. Skin assessment pictures completed and placed in chart by material handler 1st shift. Removed PIV on RAC, clean and intact. Patient tolerated well. Medication reconciliation and discharge orders reviewed and explained to Patient. Patient verbalized understanding. All belongings with Patient. Patient will follow up with primary MD. Escorted Patient to the Lobby for safety. Patient picked up by friend, Nathaniel.
== END 2019-03-15 14:15 | disposition home or self-care (01) | DRG 383 ==
LOC: ER 18:12 → MED 22:07
PROVIDERS: ADMIT Internal Medicine; ATTEND Student in an Organized Health Care Education/Training Program
DX: L03.116 Cellulitis of left lower limb (principal); E44.1 Mild protein-calorie malnutrition; D64.9 Anemia, unspecified; F41.9 Anxiety disorder, unspecified; K21.9 Gastro-esophageal reflux disease without esophagitis; I10 Essential (primary) hypertension; Z87.01 Personal history of pneumonia (recurrent); R74.0 Nonspecific elevation of levels of transaminase and lactic acid dehydrogenase [LDH]; Z79.899 Other long term (current) drug therapy; T50.905A Adverse effect of unspecified drugs, medicaments and biological substances, initial encounter; Y92.009 Unspecified place in unspecified non-institutional (private) residence as the place of occurrence of the external cause; Z68.24 Body mass index [BMI] 24.0-24.9, adult
CPT/HCPCS: 36415; 76705-TC; 80048-TC; 80053-TC; 80061-TC; 80076-TC; 80202-TC; 83605-TC; 83690-TC; 83735-TC; 84100-TC; 85025-TC; 85730-TC; 86360; 86705; 86803; 87040-TC; 87081-TC; 93971-TC; 93979-TC; 97116-TC; 97530-TC; G0378; J0696; J2270; J2405; J3370; J7050; J7060

== ENCOUNTER 2022-09-07 01:55 | Emergency (ER) | payer MEDICAID, OTHER ==
[~2022-09-07] VITALS: Ht 182.9 cm; Wt 92.3 kg
[~2022-09-07 01:55] MED LIST changes: -ASPI-1152 PO; +ASPI-1420 PO; +BICT1TAB PO; +BUPR-319 PO; -BUPR300T54 PO; +CEPH-570 PO; -DOLU50TA PO; -EMTR1TAB17 PO; -OMEP40CA13 PO; +OMEP40CA21 PO
--- NOTE | 2022-09-07 03:10 | NUR ---
BIBS FROM HOME WITH CC OF BILATERAL LOWER LEG EDEMA X 10 DAYS
[2022-09-07 03:37] LABS: BASOPHILS % (AUTO) 0.5 % (0.0-2.0); HEMATOCRIT 36 % (39-51); LYMPHOCYTES # (AUTO) 1.4 K/uL (0.8-4.8); LYMPHOCYTES % (AUTO) 37.7 % (20.0-44.0); MEAN CORPUSCULAR HGB CONC 33 g/dl (31.0-36.0); MEAN CORPUSCULAR VOLUME 88 fL (80-96); MONOCYTES # (AUTO) 0.5 K/uL (0.1-1.30); NEUTROPHILS # (AUTO) 1.7 K/uL (1.8-8.9); NEUTROPHILS % (AUTO) 45.8 % (43.0-81.0); PLATELET COUNT (AUTO) 163 K/uL (150-450); RED BLOOD CELL COUNT(AUTO) 4.09 MIL/uL (4.5-6.0); WHITE BLOOD COUNT (AUTO) 3.8 K/uL (4.3-11.0)
[2022-09-07 04:09] LABS: CALCIUM, SERUM 8.6 mg/dL (8.5-10.1); CARBON DIOXIDE 27 mmol/L (21-32); CHLORIDE 105 mmol/L (98-107); CREATININE 0.9 mg/dL (0.6-1.3); GLUCOSE 94 mg/dL (74-106); POTASSIUM 3.5 mmol/L (3.5-5.1); SODIUM SERUM 138 mmol/L (136-145); UREA NITROGEN, BLOOD 12 mg/dL (7-18)
[2022-09-07 04:24] LABS: ALANINE AMINOTRANSFERASE 48 U/L (12-78); ALBUMIN 3.5 g/dL (3.4-5.0); ALKALINE PHOSPHATASE 102 U/L (46-116); ASPARTATE AMINOTRANSFERASE 43 U/L (15-37); BILIRUBIN,DIRECT 0.2 mg/dL (0.0-0.2); BILIRUBIN,TOTAL 0.5 mg/dL (0.2-1.0); TOTAL PROTEIN, SERUM 8.6 g/dL (6.4-8.2)
--- NOTE | 2022-09-07 07:33 | NUR ---
IV removed. Catheter intact and site benign. Pressure and 4x4 applied to site. No bleeding noted.
--- NOTE | 2022-09-07 07:33 | NUR ---
Patient discharged to home in stable condition. Written and verbal after care instructions given. Patient verbalizes understanding of instruction.
[2022-09-07 07:34] VITALS: BP 141/81
== END 2022-09-07 07:34 | disposition home or self-care (01) ==
LOC: ER 02:08
DX: R60.0 Localized edema (principal); I73.9 Peripheral vascular disease, unspecified; G43.909 Migraine, unspecified, not intractable, without status migrainosus; I10 Essential (primary) hypertension; Z85.038 Personal history of other malignant neoplasm of large intestine; Z79.899 Other long term (current) drug therapy; Z79.82 Long term (current) use of aspirin; Z88.2 Allergy status to sulfonamides; Z91.040 Latex allergy status
CPT/HCPCS: 36415; 71045-TC; 80048-TC; 80076-TC; 83880; 84484-TC; 85025-TC; 85730-TC; 93970-TC